=== PATIENT | male | born 1960 | race Caucasian/White ===

== ENCOUNTER 2017-03-24 09:43 | Day surgery (SDC) | payer BC ==
[~2017-03-24] VITALS: Ht 172.7 cm; Wt 93.0 kg
[2017-03-24 10:45] VITALS: Ht 172.7 cm; Wt 93.0 kg
[2017-03-24] MEDS ORDERED: LOSA50TA6 PO (10:50)
[2017-03-24 11:23] VITALS: BP 166/91; PULSE 87; RESP 15
[2017-03-24 12:10] VITALS: BP 126/85; PULSE 78; RESP 12
[2017-03-24] MEDS ORDERED: MIDAZOLAM 1 MG/ML 2 ML INJ ONE ×2 (12:35→12:36)
[2017-03-24] MEDS ORDERED: FENTAnyl 50 MCG/ML VIAL ONE (12:35)
--- NOTE | 2017-03-24 12:59 | GILP ---
DATE OF PROCEDURE: 03/24/2017 PROCEDURE PERFORMED: Colonoscopy. SURGEON: Domenica Watts MD INDICATION: A 56-year-old male undergoing this procedure for screening colonoscopy. The risk of th e procedure, related and unrelated complications, sedative risks, alternatives discussed and informe d consent was obtained. DESCRIPTION OF PROCEDURE: The patient was brought to the GI lab, sedated with Versed 4 mg, fentanyl 100 mcg. After optimal sedation, scope was passed with much ease into rectum, advanced slowly all the way into cecum and finally into terminal ileum. Terminal ileum was normal. Rest of the colon a ppeared normal. No diverticula, no polyps seen. Retroversion done, small hemorrhoids identified. Scope was straightened out and removed with good patient tolerance. IMPRESSION: 1. Normal finding all the way into cecum. 2. Normal terminal ileum. 3. Clarity and cleanliness good. 4. Normal retroflexion except for small hemorrhoids. PLAN: Stay on high fiber diet. Next colonoscopy after 10 years. Dictated By: DOMENICA RICHARDS/VEE Conf#: [id number] DID#: [id number] CC: DOMENICA WATTS MD;*EndCC*
== END 2017-03-24 18:17 | disposition home or self-care (01) ==
LOC: GIL 09:43
PROVIDERS: ATTEND Internal Medicine Gastroenterology
DX: Z12.11 Encounter for screening for malignant neoplasm of colon (principal); I10 Essential (primary) hypertension
CPT/HCPCS: 45378; J2250; J3010; Z7610